=== PATIENT | female | born 2000 | race Caucasian/White ===

== ENCOUNTER 2021-07-02 08:03 | Observation (INO) | payer MEDICAID ==
[~2021-07-02] VITALS: Ht 165.1 cm; Wt 73.5 kg
== END 2021-07-02 10:20 | disposition home or self-care (01) ==
LOC: SPU 08:03
PROVIDERS: ADMIT Specialist; ATTEND Specialist
DX: O62.9 Abnormality of forces of labor, unspecified (principal); Z3A.39 39 weeks gestation of pregnancy
CPT/HCPCS: 76815; G0378

== ENCOUNTER 2021-07-04 10:44 | Observation (INO) | payer MEDICAID ==
[~2021-07-04] VITALS: Ht 154.9 cm; Wt 73.0 kg
== END 2021-07-04 15:05 | disposition home or self-care (01) ==
LOC: SPU 10:44
PROVIDERS: ADMIT Specialist; ATTEND Specialist
DX: O62.9 Abnormality of forces of labor, unspecified (principal); Z3A.39 39 weeks gestation of pregnancy
CPT/HCPCS: 76819; G0378

== ENCOUNTER 2021-07-04 23:30 | Inpatient (IN) | payer MEDICAID, SELFPAY ==
[~2021-07-04] VITALS: Ht 157.5 cm; Wt 73.5 kg
[2021-07-05] MEDS ORDERED: TERBUTALINE SULFATE 1 MG/ML VIAL SUBCUT ONE
[2021-07-05] MEDS ORDERED: NALBUPHINE HCL 10 MG/ML AMP IVP PRN
[2021-07-05] MEDS ORDERED: AMPICILLIN SODIUM 2 GM in NS 100 ML IV ONE ×2
[2021-07-05] MEDS ORDERED: LR 1,000 ML IV SCH
[2021-07-05] MEDS ORDERED: LR 1,000 ML IV ONE
[2021-07-05 00:04] VITALS: BP_SYST 138
[2021-07-05 00:45] LABS: HEMOGLOBIN 11.9 g/dL (12.0-16.0); PLATELET COUNT (AUTO) 174 K/uL (130-430); WHITE BLOOD COUNT (AUTO) 14.4 K/uL (4.5-11.0)
[2021-07-05] MEDS ORDERED: AMPICILLIN SODIUM 2 GM VIAL ONE (00:47)
[2021-07-05 00:49] LABS: BASOPHILS % (AUTO) 0.2 % (0.0-2.0); EOSINOPHILS # (AUTO) 0.1 K/uL (0.0-0.4); EOSINOPHILS % (AUTO) 0.4 % (0.0-4.0); LYMPHOCYTES # (AUTO) 1.6 K/uL (1.0-5.5); LYMPHOCYTES % (AUTO) 11.4 % (20.5-51.5); MEAN CORPUSCULAR HEMOGLOBIN 26 pg (27-31); MEAN CORPUSCULAR HGB CONC 33 % (32-36); MEAN CORPUSCULAR VOLUME 78 fL (79.0-98.0); MONOCYTES # (AUTO) 0.8 K/uL (0.0-1.0); MONOCYTES % (AUTO) 5.7 % (1.7-9.3); NEUTROPHILS # (AUTO) 11.9 K/uL (1.8-7.7); NEUTROPHILS % (AUTO) 82.3 % (40.0-70.0); RED CELL DISTRIBUTION WIDTH 14.9 % (9.0-15.0)
[2021-07-05] MEDS ORDERED: fentaNYL CITRATE/PF 100 MCG/2 ML AMP ONE ×2 (01:32→07:19)
[2021-07-05] MEDS ORDERED: ROPIVACAINE HCL/PF 0.2% 200 ML ONE ×2 (01:32→19:06)
[2021-07-05] MEDS ORDERED: TERBUTALINE SULFATE 1 MG/ML VIAL ONE (03:54)
[2021-07-05] MEDS ORDERED: AMPICILLIN SODIUM 1 GM VIAL ONE (05:04)
[2021-07-05] MEDS: AMPICILLIN SODIUM 1 GM in NS 50 ML IV SCH ×4 (05:09→17:01)
[2021-07-05] MEDS: OXYTOCIN/0.9 % SODIUM CHLORIDE 1,000 ML IV SCH ×2 (06:47→17:39)
[2021-07-05] MEDS ORDERED: FENT2mCg/mL-ROPIVA0.2%/NS EPID 200 ML EP SCH (08:15)
[2021-07-05] MEDS ORDERED: LR 500 ML IV ONE ×2 (08:15)
[2021-07-05] MEDS ORDERED: ACETAMINOPHEN 325 MG TABLET ONE (16:10)
[2021-07-05] MEDS ORDERED: ACETAMINOPHEN 325 MG TABLET PO PRN (16:15)
[2021-07-05] MEDS ORDERED: TEMAZEPAM 15 MG CAPSULE PO PRN (21:00)
[2021-07-05] MEDS ORDERED: MEASLES,MUMPS&RUBELLA VACC/PF 12500 UNIT/0.5 ML VIAL SUBQ PRN (22:00)
[2021-07-05] MEDS ORDERED: DIPH-TET-PERTUS Vaccine 0.5 ML VIAL (ADACEL) I.M. PRN (22:00)
[2021-07-05] MEDS ORDERED: METHYLERGONOVINE MALEATE 0.2 MG TABLET PO PRN (22:00)
[2021-07-05] MEDS ORDERED: WITCH HAZEL LEAF 1 MED.PAD MED.PAD TP PRN (22:00)
[2021-07-05] MEDS ORDERED: ANUSOL 1 EA SUPP.RECT (PREPARATION H) RC PRN (22:00)
[2021-07-05] MEDS ORDERED: LANOLIN 7 GM OINT. TP PRN (22:00)
[2021-07-05] MEDS ORDERED: DERMOPLAST SPRAY TP PRN (22:00)
[2021-07-05] MEDS ORDERED: OXYTOCIN/0.9 % SODIUM CHLORIDE 1,000 ML IV ONE (22:00)
[2021-07-05] MEDS ORDERED: RHO(D) IMMUNE GLOBULIN/MALTOSE 1500 UNITS/1.3 ML (WINHRO) IM PRN (22:00)
[2021-07-05] MEDS ORDERED: HYDROCORTISONE 0.5% CREAM 28.4 GM CREAM.GM. TP PRN (22:00)
[2021-07-05] MEDS ORDERED: OXYTOCIN/0.9 % SODIUM CHLORIDE 1,000 ML IV SCH (22:00)
[2021-07-05] MEDS ORDERED: IBUPROFEN 600 MG TABLET ONE (22:07)
[2021-07-06 07:47] LABS: BASOPHILS % (AUTO) 0.2 % (0.0-2.0); EOSINOPHILS % (AUTO) 0.2 % (0.0-4.0); HEMATOCRIT 31.6 % (36-48); HEMOGLOBIN 10.4 g/dL (12.0-16.0); LYMPHOCYTES # (AUTO) 2.4 K/uL (1.0-5.5); LYMPHOCYTES % (AUTO) 12.1 % (20.5-51.5); MEAN CORPUSCULAR HEMOGLOBIN 26 pg (27-31); MEAN CORPUSCULAR HGB CONC 33 % (32-36); MEAN CORPUSCULAR VOLUME 79 fL (79.0-98.0); MONOCYTES % (AUTO) 5.1 % (1.7-9.3); NEUTROPHILS # (AUTO) 16.1 K/uL (1.8-7.7); NEUTROPHILS % (AUTO) 82.4 % (40.0-70.0); PLATELET COUNT (AUTO) 168 K/uL (130-430); RED BLOOD CELL COUNT(AUTO) 3.99 MIL/uL (4.2-6.2); WHITE BLOOD COUNT (AUTO) 19.6 K/uL (4.5-11.0)
[2021-07-06] MEDS: DOCUSATE SODIUM 100 MG CAPSULE PO SCH (10:05)
[2021-07-06] MEDS: IBUPROFEN 600 MG TABLET PO SCH ×2 (16:22→22:37)
[2021-07-06] MEDS ORDERED: SENNOSIDES/DOCUSATE SODIUM 1 TAB TABLET(SENOKOT-S) PO SCH (21:00)
[2021-07-07] MEDS: IBUPROFEN 600 MG TABLET PO SCH ×2 (04:05→12:14)
[2021-07-07 07:24] LABS: BASOPHILS % (AUTO) 0.2 % (0.0-2.0); EOSINOPHILS # (AUTO) 0.3 K/uL (0.0-0.4); EOSINOPHILS % (AUTO) 1.8 % (0.0-4.0); HEMATOCRIT 31.2 % (36-48); HEMOGLOBIN 10.3 g/dL (12.0-16.0); LYMPHOCYTES # (AUTO) 3.7 K/uL (1.0-5.5); LYMPHOCYTES % (AUTO) 21.5 % (20.5-51.5); MEAN CORPUSCULAR HEMOGLOBIN 26 pg (27-31); MEAN CORPUSCULAR HGB CONC 33 % (32-36); MEAN CORPUSCULAR VOLUME 80 fL (79.0-98.0); MONOCYTES % (AUTO) 5.8 % (1.7-9.3); NEUTROPHILS # (AUTO) 12.1 K/uL (1.8-7.7); NEUTROPHILS % (AUTO) 70.7 % (40.0-70.0); PLATELET COUNT (AUTO) 181 K/uL (130-430); RED BLOOD CELL COUNT(AUTO) 3.93 MIL/uL (4.2-6.2); RED CELL DISTRIBUTION WIDTH 14.9 % (9.0-15.0); WHITE BLOOD COUNT (AUTO) 17.1 K/uL (4.5-11.0)
[2021-07-07] MEDS: DOCUSATE SODIUM 100 MG CAPSULE PO SCH (08:54)
[2021-07-07 21:06] LABS: FTA-Ab (T PALLIDUM) Non Reactive (Non Reactive)
== END 2021-07-07 14:38 | disposition home or self-care (01) | DRG 560 ==
LOC: SPU 23:30
PROVIDERS: ADMIT Specialist; ATTEND Specialist
PROC: 3E0R3BZ Introduction of Anesthetic Agent into Spinal Canal, Percutaneous Approach (ICD-10-PCS; 2020-07-05)
PROC: 10E0XZZ Delivery of Products of Conception, External Approach (ICD-10-PCS; principal; 2021-07-05)
PROC: 00HU33Z Insertion of Infusion Device into Spinal Canal, Percutaneous Approach (ICD-10-PCS; 2021-07-05)
PROC: 10907ZC Drainage of Amniotic Fluid, Therapeutic from Products of Conception, Via Natural or Artificial Opening (ICD-10-PCS; 2021-07-05)
DX: O77.0 Labor and delivery complicated by meconium in amniotic fluid (principal); Z37.0 Single live birth; D62 Acute posthemorrhagic anemia; O99.824 Streptococcus B carrier state complicating childbirth; Z3A.39 39 weeks gestation of pregnancy; Z20.822 Contact with and (suspected) exposure to COVID-19; O99.02 Anemia complicating childbirth
CPT/HCPCS: 36415; 81002; 85018; 85025; 86592; 86780; 86886; 86900; 86901; 94760; J0290; J2300; J2590; J3010; J3105